=== PATIENT | female | born 1990 | race Caucasian/White ===

== ENCOUNTER 2019-02-14 15:22 | Emergency (ER) | payer MEDICAID ==
[2019-02-14] MEDS: IBUPROFEN 600 MG TAB PO (17:56)
[2019-02-14] MEDS: CLINDAMYCIN 300 MG INJ IM (18:11)
== END 2019-02-14 18:57 | disposition home or self-care (01) ==
LOC: FTE 15:22
DX: L03.115 Cellulitis of right lower limb (principal)
CPT/HCPCS: 96372; 99284-25